=== PATIENT | female | born 1965 | race Caucasian/White ===

== ENCOUNTER 2018-05-20 14:43 | Emergency (ER) | payer OTHER ==
[~2018-05-20] VITALS: Ht 160 cm; Wt 58.1 kg
[2018-05-20 14:46] VITALS: BP 152/95
[2018-05-20] MEDS ORDERED: BACTRIM DS TAB1 EACH PO (15:16)
[2018-05-20] MEDS ORDERED: KEFLEX500 M1 PO (15:16)
[2018-05-20] MEDS ORDERED: IBUPROFEN800 M1 PO (15:16)
--- NOTE | 2018-05-20 15:16 | ED HAND/WRIST INJURY COMPLAINT ---
History of Present Illness General Chief Complaint: Animal/Insect Bite Stated Complaint: L HAND INSECT BITE Source: patient Exam Limitations: no limitations Vital Signs & Intake/Output Vital Signs & Intake/Output Vital Signs Date Time Temp Pulse Resp B/P B/P Pulse O2 O2 Flow FiO2 Mean Ox Delivery Rate 05/20 1446 98.2 98 18 152/95 98 Room Air ED Intake and Output 05/21 0000 05/20 1200 Intake Total 0 Output Total Balance 0 Intake, Oral 0 Patient 128 lb Weight Weight Reported by Patient Measurement Method Reconcile Medications Cephalexin (Keflex) 500 MG CAPSULE 1 CAP PO TID ABSCESS Ibuprofen 800 MG TABLET 1 TAB PO TID PRN PAIN Sulfamethoxazole/Trimethoprim (Bactrim Ds Tablet) 800 MG-160 MG TABLET 1 TAB PO BID ABSCESS Triage Note: 52 Y/O FEMALE SENT BY JEWELS JONES (NIGHT NURSE) FOR EVAL OF L 5TH FINGER CELLULITIS. PT STATES SHE THINKS SHE WAS BIT BY SOMETHING LAST WEEK, AREA BECAME RED AND THEN GOT PROGRESSIVELY WORSE. FLUID FILLED CENTER NOTED. PT STATES SENT TO ED FOR ? IV ANTIBIOTICS. HAS BEEN USING TOPICAL ANTIBIOTICS BUT NO PO MEDS Triage Nurses Notes Reviewed? yes Duration: week(s): (1), constant, continues in ED, getting worse Timing: single episode today Injury Environment: home Severity: moderate, severe Severity Numbers: 7 Pain/Injury Location: Left: 5th finger. LMP (ages 10-50): post menopausal HPI: 52-year-old female with no medical history presents for evaluation of a painful red swollen area on her left fifth digit. Patient reports she first noticed this about 1 week ago it has gradually gotten worse. She saw her primary care doctor and was given topical Bactroban which she has been putting on without improvement. The redness continued to spread. This been no discharge there is no trauma no fever the pain is worse with range of motion. No numbness or tingling she is not a diabetic. (Ramesh MENDEZ,Abran) Allergies Coded Allergies: adhesive tape (Severe, RASH, HIVES 05/20/18) No Known Drug Allergies (Intermediate, NONE 05/21/18) (Miguel ST,Lewis) Past History Travel History Traveled to [place] past 21 day No Medical History Any Pertinent Medical History? see below for history Neurological: NONE EENT: NONE Cardiovascular: NONE Respiratory: NONE Gastrointestinal: NONE Hepatic: NONE Renal: NONE Musculoskeletal: NONE Psychiatric: NONE Endocrine: NONE Blood Disorders: NONE Cancer(s): NONE Surgical History Surgical History: non-contributory Psychosocial History What is your primary language Luxembourger Tobacco Use: Never used Family History Hx Contributory? No (Abran Fobres) Review of Systems Review of Systems Constitutional: Reports: no symptoms. EENTM: Reports: no symptoms. Respiratory: Reports: no symptoms. Cardiovascular: Reports: no symptoms. GI: Reports: no symptoms. Genitourinary: Reports: no symptoms. Musculoskeletal: Reports: no symptoms. Skin: Reports: erythema. Neurological/Psychological: Reports: no symptoms. Hematologic/Endocrine: Reports: no symptoms. Immunologic/Allergic: Reports: no symptoms. All Other Systems: Reviewed and Negative (Abran Forbes) Physical Exam Physical Exam General Appearance: well developed/nourished, no apparent distress, alert, awake Head: atraumatic, normal appearance Eyes: Bilateral: normal appearance, EOMI. Ears, Nose, Throat: hearing grossly normal Neck: normal inspection, supple, full range of motion Cardiovascular/Respiratory: no respiratory distress Forearm Left: normal range of motion, normal inspection Forearm Right: normal range of motion, normal inspection Wrist Left: normal range of motion, normal inspection Wrist Right: normal range of motion, normal inspection Hand Left: normal range of motion, 5th finger, THERE IS A 1.5CM DIAMETER AREA OF FOCAL FLUCTUANCE LOCATED ON THE LATERAL APSECT OF THE BASE OF THE LEFT 5TH DIGIT. THERE IS SOUROUNDING ERYTHEMA AND INDURATION FULL ROM INTACT. Hand Right: normal inspection, normal range of motion Neurologic/Tendon: normal sensation, normal motor functions, normal tendon functions Skin: intact, normal color, warm/dry (Abran Forbes) Progress Differential Diagnosis: abscess, cellulitis, contusion, dislocation, fracture, gout, septic arthritis, sprain, tenosynovitis Plan of Care: Microbiology 05/20 1453 EXTREMITIE: Culture & Sensitivity - CAN Cancelled: Cancelled via OE: Per Decision 05/20 1453 EXTREMITIE: Gram Stain - CAN Cancelled: Cancelled via OE: Per MD Decision Patient is here with a painful red swollen area to the lateral aspect of the base of the left fifth digit. There is an area of focal fluctuance. The area was cleaned with Betadine 1% lidocaine without epi was used for local pain control. 11 blade used to open the area of focal fluctuance small amount of purulent discharge expressed. Sterile dressing applied. Patient will be covered with Bactrim and Keflex advised changing dressing once daily apply warm compresses return in 2 or 3 days for wound check discussed return precautions patient agrees the plan. Ibuprofen for pain (Abran Forbes) Departure Departure Disposition: HOME OR SELF CARE Condition: Stable Clinical Impression Primary Impression: Abscess of hand, left Referrals: [facility] (PCP/Family) Additional Instructions: REST, KEEP THE AREA CLEAN AND DRY. CHANGE DRESSING DAILY. TAKE BOTH ANTIBIOTICS DIRETCED FOR FULL COURSE. TYLENOL/IBUPROFEN FOR PAIN. APPLY WARM COMPRESSESS FOR 15-20 MINUTES SEVERAL TIMES PER DAY. YOU NEED TO HAVE A WOUND CHECK EITHER IN THE EMERGENCY DEPARTMENT OR WITH YOUR PRIMARY CARE DOCTOR IN 2-3 DAYS. RETURN SOOENR WITH SPREADING RENDESS, FEVER, WORSENING SWELLING WORSENING PAIN OR ANY OTHER CONCERNS. Departure Forms: Customer Survey General Discharge Information Prescriptions: Current Visit Scripts Sulfamethoxazole/Trimethoprim (Bactrim Ds Tablet) 1 TAB PO BID #20 TAB Cephalexin (Keflex) 1 CAP PO TID #30 CAP Ibuprofen 1 TAB PO TID PRN PAIN #30 TAB (Abran Forbes) PA/MEMBERSHIP ADVISOR Co-Sign Statement Statement: ED Attending supervision documentation- I saw and evaluated the patient. I have also reviewed all the pertinent lab results and diagnostic results. I agree with the findings and the plan of care as documented in the PA's/MEMBERSHIP ADVISOR's documentation. x I have reviewed the ED Record and agree with the PA's/MEMBERSHIP ADVISOR's documentation. [] Additions or exceptions (if any) to the PAs/MEMBERSHIP ADVISOR's note and plan are summarized below: [] (Miguel ST,Lewis)
[2018-05-21] MEDS ORDERED: CLEOCIN HCL150 M1 PO (15:48)
== END 2018-05-20 15:25 ==
LOC: ERH 14:43
DX: L02.512 Cutaneous abscess of left hand (principal)
CPT/HCPCS: 87070